=== PATIENT | male | born 2005 | race Caucasian/White ===

== ENCOUNTER 2025-06-08 18:01 | Emergency (ER) | payer BC, SELFPAY ==
[2025-06-08 18:04] VITALS: BP 137/87
--- NOTE | 2025-06-08 18:57 | ED.GENMED ---
History of Present Illness
General
Chief Complaint: Skin Surface Trauma
Source: patient
Exam Limitations: none
Time Seen by Provider: 06/08/25 18:24
Nursing documentation reviewed up to this point in time: agreed with
History of Present Illness
History of Present Illness:
20-year-old male presenting to the emergency department today with concerns of a laceration to his right pinky finger from disc golf receiver bulk system. Tetanus shot was 9 years ago otherwise he denies any numbness weakness or additional injuries. Denies
any significant contamination.
Review of Systems
Review of Systems
Allergies reviewed?: Yes
All Other Systems: ROS reviewed and negative except as documented in HPI and ROS
Phy Exam
Physical Exam
Physical Exam:
GENERAL: Alert , in no apparent distress
EYE: pupils equal and reactive
NECK: Supple, no significant adenopathy.
ENT: o/p clr, mmm.
CARDIAC: Regular rate and rhythm .
LUNGS: Clear breath sounds bilaterally, no acute respiratory distress, no wheezes/rales/rhonchi
ABDOMEN: Soft, without focal tenderness, no r/g, no cvat
NEUROLOGICAL: Alert and oriented, no focal neuro deficits
SKIN: Laceration to the right pinky finger on the ulnar aspect no nailbed, subcutaneous in depth. Warm and dry, skin intact.
MUSCULOSKELETAL: No edema, well perfused.
PSYCH: Normal and appropriate interaction.
Course
Orders/Labs/Results
Orders:
Orders
06/08/25 18:56
Tetanus/Diphth/Acelpertussis [Adacel] 0.5 ml IM .ONCE ONE
Vital Signs
Initial and Last Documented VS:
Initial Vital Signs
Temp Pulse Resp BP Pulse Ox
98.1 F 74 18 137/87 98
06/08/25 18:04 06/08/25 18:04 06/08/25 18:04 06/08/25 18:04 06/08/25 18:04
Last Documented Vital Signs
Temp Pulse Resp BP Pulse Ox
98.1 F 74 18 137/87 98
06/08/25 18:04 06/08/25 18:04 06/08/25 18:04 06/08/25 18:04 06/08/25 18:04
Procedures
Laceration Closure
Distal Ulnar Fifth Finger:
Status of Wound: clean
Size of Wound in cm: 2.5
Description of Wound Edges: sharp
Preparation: cleaned with saline
Anesthesia: 1% Lidocaine and Digital-Regional
Revision/Debridement: routine- no revision and irrigate-direct pressure
Wound exploration: explored to base- no FB and no tendon involvement
Type of Closure: single layer closure and interrupted sutures
Skin Closure Material: 4-0 nylon
Number of sutures: 3
MDM/Problems Addressed
MDM/Problems Addressed:
20-year-old male presenting to the emergency department today with concerns of laceration to his right pinky finger that occurred while playing disc golf prior to arrival. Area looks very clean he has no significant medical history. This was
cleaned thoroughly and closed with 3 none dissolving stitches. Otherwise he was given an updated tetanus shot. No evidence that it was deep to the bone it was explored to its base. Otherwise stable for discharge. Advised for removal in 12 days.
Return precautions given.
*Pulse Oximetry
SaO2: 98
Oxygen Mode of Delivery: Room air
Patient hypoxic: no (98)
*Critical Care Note
Total Time (30-74mins, 75-104mins- exclusive of procedures): Not Applicable
ED Attending Note
-
Portions of this chart may have been created with voice recognition software.� Occasional wrong word or��sound alike� substitutions may have occurred due to the inherent limitations of voice recognition software.
Discharge Plan
Departure
Patient Disposition: Home (Routine Discharge)
Date of Disposition: 06/08/25
Time of Disposition: 19:01
Patient with high blood pressure during this ER visit?: No
Condition: Good
Covid-19: Not Applicable
Discharge Problem:
Finger laceration
Instructions: Laceration Repair With Stitches (DC)
Referrals:
UNKNOWN - PT DOES,NOT KNOW [Family Provider]
Activity Restrictions/Additional Instructions:
You came to the emergency department today with concerns of a laceration to your finger. This was cleaned thoroughly and closed with 3 not dissolving stitches. Please keep the area clean covered and follow-up in 12 to 14 days for suture removal.
Return for any worsening, new or concerning symptoms.
Discharge Date and Time
Print Language: CONGOLESE
[2025-06-08] MEDS: ADACEL 0.5 ML IM (19:15)
== END 2025-06-08 19:26 | disposition home or self-care (01) ==
LOC: EMR 18:01
PROVIDERS: EMERGENCY PHYSICIAN Emergency Medicine
DX: S61.211A Laceration without foreign body of left index finger without damage to nail, initial encounter (principal); W45.8XXA Other foreign body or object entering through skin, initial encounter; Z23 Encounter for immunization
CPT/HCPCS: 99282; 12001; 90471; 90715